=== PATIENT | female | born 1960 | race Caucasian/White ===

== ENCOUNTER 2016-05-02 11:01 | Outpatient (CLI) | payer MEDICAID | END 2016-05-02 11:02 | disposition home or self-care (01) | DX: E88.81 Metabolic syndrome and other insulin resistance (principal); E78.5 Hyperlipidemia, unspecified; I10 Essential (primary) hypertension ==

== ENCOUNTER 2016-08-03 23:00 | Emergency (ER) | payer MEDICAID ==
[2016-08-03 23:10] VITALS: BP 158/105
[2016-08-03] MEDS ORDERED: IPRATROPIUM/ALBUTEROL 3 ML NEB INH STA (23:27)
[2016-08-03] MEDS ORDERED: predniSONE 20 MG TABLET PO STA (23:27)
--- NOTE | 2016-08-03 23:29 | ED Physician Documentation ---
PD HPI URI - Stated complaint Stated Complaint: COUGH,VOMITING,SOA - Chief complaint Chief Complaint: Heent - History obtained from History obtained from: Patient - History of Present Illness Timing - onset: How many weeks ago (1) Timing duration: Weeks (1) Timing details: Gradual onset Pain level max: 6 Pain level now: 6 Associated symptoms: Nasal congestion, Rhinorrhea, Dry cough, Dyspnea (wheezing , has used inhalers before). No: Fever, Chills, Sore throat Contributing factors: Sick contact, COPD / asthma. No: Immunocompromised, Unimmunized Improves by: Rest Worsened by: Activity, Breathing Recently seen: Not recently seen Review of Systems Constitutional: denies: Fever, Chills Nose: reports: Rhinorrhea / runny nose, Congestion Respiratory: reports: Cough GI: denies: Abdominal Pain, Nausea, Vomiting, Diarrhea Skin: denies: Rash Musculoskeletal: denies: Neck pain, Back pain Neurologic: denies: Focal weakness, Numbness, Headache PD PAST MEDICAL HISTORY - Past Medical History Past Medical History: Yes Cardiovascular: Hypertension, High cholesterol Respiratory: Asthma Psych: Depression, Anxiety - Past Surgical History 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 HEENT: Tonsil/Adenoidectomy - Present Medications Home Medications: Ambulatory Orders Medication Instructions Recorded Confirmed Albuterol Sulfate [Albuterol 1 puffs INH TID 09/22/13 09/22/13 Sulfate Hfa] Budesonide/Formoterol Fumarate 1 puffs INH BID 09/22/13 09/22/13 [Symbicort 80-4.5 Mcg Inhaler] Bupropion HCl [Bupropion HCl Sr] 150 mg PO BID 09/22/13 09/22/13 Hydrochlorothiazide 25 mg PO DAILY 09/22/13 09/22/13 Lisinopril 10 mg PO DAILY 09/22/13 09/22/13 Losartan [Cozaar] 50 mg PO DAILY 09/22/13 09/22/13 Pravastatin Sodium 40 mg PO DAILY 09/22/13 09/22/13 Albuterol Sulf [Ventolin Hfa 2 puffs INH Q4HR PRN #1 inhaler 08/04/16 Inhaler] Prednisone 40 mg PO DAILY #10 tablet 08/04/16 - Allergies Allergies/Adverse Reactions: Allergies Allergy/AdvReac Type Severity Reaction Status Date / Time meperidine HCl * Allergy Nausea Verified 08/03/16 23:08 [From Demerol] - Social History Does the pt smoke?: No Smoking Status: Never smoker Does the pt drink ETOH?: No Does the pt have substance abuse?: Yes Substance Use and Type: Marijuana - Immunizations Immunizations are current?: No - POLST Patient has POLST: No PD ED PE NORMAL - Vitals Vital signs reviewed: Yes - General General: Alert and oriented X 3, No acute distress - HEENT HEENT: PERRL, Ears normal, Moist mucous membranes, Pharynx benign - Neck Neck: Supple, no meningeal sign - Cardiac Cardiac: RRR - Respiratory Respiratory: No respiratory distress, Other (diminished BS bilaterally.) - Abdomen Abdomen: Soft, Non tender - Derm Derm: Warm and dry - Extremities Extremities: No calf tenderness / cord - Neuro Neuro: Alert and oriented X 3 - Psych Psych: Normal mood, Normal affect Results - Vitals Vitals: Vital Signs - 24 hr 08/03/16 08/03/16 08/03/16 23:05 23:09 23:30 Temperature 36.9 C Heart Rate 91 88 Respiratory 18 18 Rate Blood Pressure 158/105 H O2 Saturation 94 08/04/16 08/04/16 00:00 00:25 Temperature Heart Rate 88 90 Respiratory 18 18 Rate Blood Pressure O2 Saturation Oxygen O2 Source Room air PD MEDICAL DECISION MAKING - ED course Complexity details: re-evaluated patient, considered differential, d/w patient ED course: Patient is a 55-year-old female who presents to the emergency department with what appears to be a viral upper respiratory infection causing exacerbation of her asthma. Given steroids here as well as a DuoNeb and albuterol treatments. Her breath sounds improved bilaterally. Coughing decreased. No hypoxia. No evidence of pneumonia clinically. No fevers. Will place on steroids and inhalers for home and have her follow-up with her doctor. Patient counseled regarding signs and symptoms for which I believe and urgent re-evaluation would be necessary. Patient with good understanding of and agreement to plan and is comfortable going home at this time This document was made in part using voice recognition software. While efforts are made to proofread this document, sound alike and grammatical errors may occur. Departure - Departure Disposition: 01 Home, Self Care Clinical Impression: Viral URI Condition: Good Instructions: ED URI Viral Follow-Up: Emeterio Lopez MD [Primary Care Provider] - Within 1 week Prescriptions: Albuterol Sulf [Ventolin Hfa Inhaler] 2 puffs INH Q4HR PRN #1 inhaler PRN Reason: Wheezing Prednisone 40 mg PO DAILY #10 tablet Comments: Return if you worsen. Use the inhaler every 4 hours as needed. Your blood pressure was elevated today on check in to the emergency department. This does not mean that you have hypertension, it is a common phenomenon to check into the emergency department and have elevated blood pressure. I recommend that you see your primary care physician within the week to have it rechecked when you're feeling better. Discharge Date/Time: 08/04/16 00:36
[2016-08-03] MEDS ORDERED: IPRATROPIUM/ALBUTEROL 3 ML NEB INH ONE (23:31)
[2016-08-03] MEDS ORDERED: predniSONE 20 MG TABLET ONE (23:38)
[2016-08-03] MEDS ORDERED: ALBUTEROL NEB 2.5 MG/3 ML INH STA (23:59)
[2016-08-04] MEDS ORDERED: ALBUTEROL NEB 2.5 MG/3 ML INH ONE (00:10)
[2016-08-04] MEDS ORDERED: ALBUTEROL 8 GM INHALER INH STA (00:21)
[2016-08-04] MEDS ORDERED: ALBUTEROL 18 GM INHALER INH ONE (00:23)
== END 2016-08-04 00:36 | disposition home or self-care (01) ==
LOC: ED 23:00
DX: J06.9 Acute upper respiratory infection, unspecified (principal); B97.89 Other viral agents as the cause of diseases classified elsewhere; I10 Essential (primary) hypertension; E78.00 Pure hypercholesterolemia, unspecified; J45.909 Unspecified asthma, uncomplicated
CPT/HCPCS: 94640; 94664; 99283; A9270; J7512; J7613; J7620

== ENCOUNTER 2016-10-21 14:17 | Outpatient (CLI) | payer MEDICAID ==
--- NOTE | 2016-10-21 17:41 | XRAY Report ---
THREE-VIEW LEFT KNEE: 10/21/2016 HISTORY: Knee pain. FINDINGS: Multicompartment degenerative changes have progressed. There is mediolateral and patellof emoral narrowing, subchondral sclerosis, and early osteophytic formation. A small suprapatellar joint effusion is noted. There is no definite acute fracture or focus of destruction. There are no changes to suggest osteoch ondritis desiccans. The alignment is anatomic. IMPRESSION: SUPRAPATELLAR JOINT EFFUSION. PROGRESSIVE DEGENERATIVE CHANGES. NO ACUTE FRACTURE OR M ALALIGNMENT. JOB #: [id number] EXT JOB #:[id number]
== END 2016-10-21 14:18 | disposition home or self-care (01) ==
LOC: DI.N 14:17
PROVIDERS: ATTEND Family Medicine
DX: M17.12 Unilateral primary osteoarthritis, left knee (principal); M25.462 Effusion, left knee; E88.81 Metabolic syndrome and other insulin resistance; E66.9 Obesity, unspecified
CPT/HCPCS: 36415; 80053; 80061; 83036

== ENCOUNTER 2016-10-21 14:19 | Outpatient (CLI) | payer MEDICAID ==
[2016-10-21 19:29] LABS: HEMOGLOBIN A1C 0.67 g/dL
[2016-10-21 19:38] LABS: ALBUMIN/GLOBULIN RATIO 1.6 (1.0-2.2); BILIRUBIN,TOTAL 0.3 mg/dL (0.2-1.0); BUN - BLOOD UREA NITROGEN 20 mg/dL (6-20); CALCIUM 9.3 mg/dL (8.5-10.3); CARBON DIOXIDE - CO2 30 mmol/L (21-32); CHLORIDE 101 mmol/L (101-111); CHOL/HDL RATIO 4.4 (<4.4); CHOLESTEROL 197 mg/dL; CREATININE 0.7 mg/dL (0.4-1.0); GFR - MDRD 87 (>89); GLUCOSE 105 mg/dL (70-100); HDL CHOLESTEROL 45 mg/dL; LDL/HDL RATIO 2.3 (<4.4); SODIUM 140 mmol/L (135-145); TOTAL PROTEIN 7.3 g/dL (6.7-8.2); TRIGLYCERIDES 252 mg/dL; VLDL CHOLESTEROL 50 mg/dL
== END 2016-10-21 14:20 | disposition home or self-care (01) ==
LOC: LAB.N 14:19
PROVIDERS: ATTEND Family Medicine
DX: E66.9 Obesity, unspecified (principal); E88.81 Metabolic syndrome and other insulin resistance
CPT/HCPCS: 36415; 80053; 80061; 83036

== ENCOUNTER 2016-10-22 16:51 | Outpatient (CLI) | payer MEDICAID ==
--- NOTE | 2016-10-23 09:53 | Ultrasound Report ---
EXAM: LEFT LOWER EXTREMITY VENOUS ULTRASOUND EXAM DATE: 10/22/2016 05:43 PM. CLINICAL HISTORY: Left leg pain, left thigh pain, left knee pain. COMPARISON: None. TECHNIQUE: Real-time sonographic vascular imaging was performed by the boiler tube reamer through the lower extremity utilizing both color-flow and Doppler spectral analysis. 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 FINDINGS: Common Femoral Vein (CFV): Normal. CFV-GSV Junction: Normal. Profunda Femoral Vein (PFV): Normal. Femoral Vein (FV) Prox: Normal. Femoral Vein (FV) Mid: Normal. Femoral Vein (FV) Dist: Normal. Popliteal Vein: Normal. Posterior Tibial Veins: Normal. Peroneal Veins: Normal. Contralateral Side CFV: Normal. Other: 5.4 x 1.4 x 2.0 cm Summers's cyst. IMPRESSION: No evidence for deep venous thrombosis. [facility] Referring Provider Line: [phone] SITE ID: [id number]
== END 2016-10-22 16:52 | disposition home or self-care (01) ==
LOC: DI 16:51
PROVIDERS: ATTEND Family Medicine
DX: M79.605 Pain in left leg (principal); M79.652 Pain in left thigh; M25.562 Pain in left knee

== ENCOUNTER 2017-03-21 14:50 | Outpatient (CLI) | payer MEDICAID | END 2017-03-21 14:51 | disposition home or self-care (01) | LOC: DI 14:50 | PROVIDERS: ATTEND Nurse Practitioner Gerontology | DX: Z53.9 Procedure and treatment not carried out, unspecified reason (principal) ==

== ENCOUNTER 2017-03-28 16:22 | Outpatient (CLI) | payer MEDICAID ==
--- NOTE | 2017-03-28 22:19 | MRI Report ---
EXAM: LEFT KNEE MRI WITHOUT CONTRAST EXAM DATE: 03/28/2017 05:41 PM. CLINICAL HISTORY: Pain in left knee. COMPARISON: Left knee radiography from 10/21/2016. TECHNIQUE: Multiplanar, multisequence T1-weighted and fluid-sensitive sequences of the knee without c ontrast. Other: None. FINDINGS: Bones and articular cartilage: Marginal osteophytes at the femoral condyles, tibial plateau, and bolton lla. Grade 3 chondromalacia at the posterior aspect of the lateral tibial plateau. Grade 2 chondromal acia at the lateral femoral condyle. Grade 3-4 chondromalacia at the medial femoral condyle and media l tibial plateau. Focal full-thickness articular cartilage fissure at the medial patellar facet. Grad e 2-3 chondromalacia at the medial patellar facet. Grade 2 chondromalacia at the femoral trochlea. No patellar subluxation. Medial Meniscus: Horizontal tear throughout the posterior horn. Vertically-oriented longitudinal tear within the lateral aspect of the posterior horn. The medial meniscal body is partially extruded medi ally from the medial joint compartment. Lateral Meniscus: The lateral meniscus is intact. Cruciate Ligaments: The anterior and posterior cruciate ligaments are intact. Collateral Ligaments: The medial collateral and lateral collateral ligamentous structures are intact. Tendons: The quadriceps, patellar, semimembranosus, and popliteus tendons are unremarkable. Musculature: No edema or fatty atrophy. Other: Small joint effusion. Small to moderate-sized popliteal cyst. There is a 4 mm ossified loose b zaid or focal fatty tissue at the posterolateral aspect of the medial joint compartment (coronal image 23, sagittal image 13, axial image 13). The medial and lateral retinacula are intact. The subcutane ous tissues and fat pads are unremarkable. IMPRESSION: 1. 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 2. Horizontal and vertical tears at the posterior horn medial meniscus. The medial meniscal body is p artially extruded medially from the medial joint compartment. 3. Small joint effusion and small to moderate-sized popliteal cyst. 4. A 4 mm ossified loose body or focal fatty tissue at the posterolateral aspect of the medial joint compartment. [facility] MUSCULOSKELETAL RADIOLOGY SECTION Referring Provider Line: [phone] SITE ID: [id number]
== END 2017-03-28 16:23 | disposition home or self-care (01) ==
LOC: DI 16:22
PROVIDERS: ATTEND Nurse Practitioner Gerontology
DX: M17.12 Unilateral primary osteoarthritis, left knee (principal); S83.242A Other tear of medial meniscus, current injury, left knee, initial encounter; M25.462 Effusion, left knee; M71.22 Synovial cyst of popliteal space [Baker], left knee

== ENCOUNTER 2017-05-22 13:37 | Outpatient (CLI) | payer MEDICAID ==
[2017-05-22 19:26] LABS: CALCIUM 8.7 mg/dL (8.5-10.3); CREATININE 0.6 mg/dL (0.4-1.0)
[2017-05-22 19:38] LABS: HB2 TOTAL 13.5 g/dL; HEMOGLOBIN A1C 0.52 g/dL; HEMOGLOBIN A1C % 5.7 % (4.6-6.2)
== END 2017-05-22 13:38 | disposition home or self-care (01) ==
LOC: LAB.N 13:37
PROVIDERS: ATTEND Family Medicine
DX: R73.01 Impaired fasting glucose (principal); Z87.440 Personal history of urinary (tract) infections
CPT/HCPCS: 36415; 80048; 81001; 81003; 83036; 87086

== ENCOUNTER 2017-05-22 16:46 | Outpatient (CLI) | payer MEDICAID ==
[2017-05-22 18:56] LABS: BILIRUBIN,URINE NEGATIVE (NEGATIVE); GLUCOSE, URINE (UA) NEGATIVE (NEGATIVE); KETONES,URINE (UA) NEGATIVE (NEGATIVE); LEUKOCYTE ESTERASE, URINE NEGATIVE (NEGATIVE); NITRITE,URINE NEGATIVE (NEGATIVE); OCCULT BLOOD,URINE SMALL (NEGATIVE); PH,URINE 5.5 PH (5.0-7.5); PROTEIN,URINE TRACE mg/dL (NEGATIVE); UROBILINOGEN,URINE 1 (NORMAL) E.U./dL (NORMAL)
[2017-05-22 19:03] LABS: CLARITY,URINE CLOUDY (CLEAR)
[2017-05-22 20:31] LABS: AMORPHOUS SEDIMENT,UR Marked /LPF; BACTERIA,URINE Rare /HPF (None Seen); SQUAMOUS EPITHELIAL CELL,UR FEW Squamous (<= Few)
== END 2017-05-22 16:47 | disposition home or self-care (01) ==
LOC: LAB.R 16:46
PROVIDERS: ATTEND Nurse Practitioner Gerontology
DX: Z87.440 Personal history of urinary (tract) infections (principal)
CPT/HCPCS: 81001; 81003; 87086

== ENCOUNTER 2017-07-07 09:16 | Day surgery (SDC) | payer MEDICAID ==
[2017-07-07] MEDS ORDERED: LACTATED RINGERS 1,000 ML IV ONE ×2 (09:46→11:50)
[2017-07-07] MEDS ORDERED: SCOPOLAMINE PATCH TOP ONE (10:22)
[2017-07-07] MEDS ORDERED: fentaNYL 250 MCG/5 ML VIAL IVP ONE (11:17)
[2017-07-07] MEDS ORDERED: MIDAZOLAM 2 MG/2 ML VIAL IVP ONE (11:17)
[2017-07-07] MEDS ORDERED: LIDO GARGLE 30 ML BOTTLE TOP ONE (11:22)
[2017-07-07] MEDS ORDERED: LIDO GARGLE 30 ML BOTTLE ONE (11:27)
[2017-07-07 12:42] VITALS: BP 128/75
== END 2017-07-07 09:17 | disposition home or self-care (01) ==
LOC: SDS 09:16
PROVIDERS: ATTEND Surgery
PROC: 0DB78ZX Excision of Stomach, Pylorus, Via Natural or Artificial Opening Endoscopic, Diagnostic (ICD-10-PCS; 2017-07-07)
PROC: 0DBL8ZX Excision of Transverse Colon, Via Natural or Artificial Opening Endoscopic, Diagnostic (ICD-10-PCS; principal; 2017-07-07 10:30)
PROC: 0DB38ZX Excision of Lower Esophagus, Via Natural or Artificial Opening Endoscopic, Diagnostic (ICD-10-PCS; 2017-07-07 10:30)
DX: K44.9 Diaphragmatic hernia without obstruction or gangrene (principal); K25.9 Gastric ulcer, unspecified as acute or chronic, without hemorrhage or perforation; D12.3 Benign neoplasm of transverse colon; K57.30 Diverticulosis of large intestine without perforation or abscess without bleeding; K64.8 Other hemorrhoids; K64.4 Residual hemorrhoidal skin tags; F32.9 Major depressive disorder, single episode, unspecified; I10 Essential (primary) hypertension; Z79.82 Long term (current) use of aspirin
CPT/HCPCS: 43239; 45380; A9270; J3010; J3490; J7120; 88305

== ENCOUNTER 2017-08-18 07:15 | Day surgery (SDC) | payer MEDICAID ==
[2017-08-18] MEDS ORDERED: SCOPOLAMINE PATCH TOP ONE (07:41)
[2017-08-18] MEDS ORDERED: BUPIVACAINE 0.5%-EPI 1:200000 PF 30 ML VIAL ONE (07:48)
[2017-08-18] MEDS ORDERED: LIDOCAINE JELLY 2% 5 ML TUBE TOP ONE ×2 (07:48→10:04)
[2017-08-18] MEDS ORDERED: LACTATED RINGERS 1,000 ML IV ONE ×2 (07:54→10:34)
[2017-08-18] MEDS ORDERED: ALBUTEROL 6.7 GM INHALER INH ONE (10:02)
[2017-08-18] MEDS ORDERED: KETOROLAC 30 MG/ML VIAL IVP ONE (10:02)
[2017-08-18] MEDS ORDERED: DEXAMETHASONE 4 MG/ML VIAL IVP ONE (10:02)
[2017-08-18] MEDS ORDERED: GLYCOPYRROLATE 1 MG/5 ML VIAL IVP ONE (10:02)
[2017-08-18] MEDS ORDERED: ONDANSETRON 4 MG/2 ML VIAL IVP ONE (10:02)
[2017-08-18] MEDS ORDERED: ROCURONIUM 50 MG/5 ML VIAL IVP ONE (10:02)
[2017-08-18] MEDS ORDERED: fentaNYL 250 MCG/5 ML VIAL IVP ONE (10:02)
[2017-08-18] MEDS ORDERED: MIDAZOLAM 2 MG/2 ML VIAL IVP ONE (10:02)
[2017-08-18] MEDS ORDERED: NEOSTIGMINE 1 MG/1 ML 10 ML MDV IVP ONE (10:02)
[2017-08-18] MEDS ORDERED: PROPOFOL 200 MG/20 ML VIAL IVP ONE (10:02)
[2017-08-18] MEDS ORDERED: BUPIVACAINE 0.5%-EPI 1:200000 PF 30 ML VIAL SUBQ ONE (10:04)
--- NOTE | 2017-08-18 10:34 | OPERATIVE REPORT ---
Operative Report - General Procedure Date: 08/18/17 Planned Procedure: Stapled hemorrhoidectomy (PPH) Pre-Op Diagnosis: Symptomatic, prolapsing internal hemorrhoids Procedure Performed: Stapled hemorrhoidectomy (PPH) Post Op Diagnosis: Same. - Procedure Note Primary Surgeon: Aristides Jolley MD Anesthesia Provider: Alison Luna CRNA Anesthesia Technique: General ET tube, Local (30 mL of half percent Marcaine with epinephrine) IV Fluids (mL): 1,000 Estimated Blood Loss (mL): 5 Complications: None. - Other Other Information/Narrative: OPERATIVE DESCRIPTION/REPORT: After verbal and written informed consent was obtained detailing the risks of infection, bleeding requiring transfusion with its risks, nerve injury, and , and after I met with the patient confirming the surgery and the site of the surgery, the patient was brought to the operative suite and placed supine on the operating table. Great care was taken to avoid pressure points to prevent pressure necrosis or nerve injury. Monitoring devices were applied along with TEDs and pneumatic compressive stockings (to prevent DVT). The patient received preoperative antibiotics for surgical prophylaxis. Alison Luna CRNA sedated and anethetized the patient for the entire procedure. The patient was then placed prone in the jewel-knife position, again taking care to ensure that we prevented pressure point. The patients buttocks were taped apart and the patient was prepped and draped in the usual sterile manner. A "time in" then confirmed that the paitient was identified with 3 identifiers ( name, birthdate and medical record number), the history and physical was in the chart, the signed consent confirming the procedure was in the chart, the patient was in the correct position, the aforementioned prophylactic measures were in place or given, we had the correct personnel and equipment to complete the procedure and that anesthesia, surgery and nursing were given an opportunity to express any concerns. With the agreement of everyone in the room , we proceeded with the operation. The anorectum was injected circumferentially with % marcaine. A large external hemorrhoid was excised using serial application of the Harmonic scalpel , as it would not be addressed by the PPH technique. The PPH kit was obtained and opened. The anal retractor and dilator were placed in the patients anus after thoroughly lubricating them with a water-soluble lubricant. The retractor was held in place to the patients buttocks with 2 2-0 Prolene sutures. The dilator was removed and the tapered appliance was inserted. 4 cm was clearly marked on the appliance measuring from the dentate line. The dentate line was clearly protected behind the retractor. A 2-0 Prolene was then used to sew a purse-string at 4 cm from the dentate line using the tapered appliance as a guide and retractor. The purse string was completed through over 360 degrees to ensure that there were no skipped areas. The purse-string was tested by pulling on the two ends of the suture and feeling the purse- string contract against my finger. It was noted to be complete without any missed areas. The anvil was inserted past the purse-string feeling the ``pop as it passed it. The purse-string was then tied tight around the post and the ends of the suture brought up and tied through the orange hole in the anvil. The anvil was then inserted into the stapling device and the stapler was then screwed down tight. I inserted my finger in the vagina to ensure that the vaginal mucosa was not included in the stapler and it was not. Three minutes were allowed to elapse to allow for emptying of the tissues of blood. The stapler was fired and removed from the anus. A complete ``donut was retrieved from around the post of the stapler, and this was sent in to pathology. Digital examination confirmed a circumferential stapling. Visual inspection confirmed hemostasis. A roll of gelfoam and lidocaine jelly was fashioned and inserted into the patients anus. The perianal area was again injected with the remaining % marcaine. At this point a time out was performed that confirmed that all the counts were correct, the procedure that was performed, the blood loss, the IV fluids administered, and the patients condition. Having tolerated the procedure well, the patient was subsequently taken to short stay in good and stable condition.
[2017-08-18] MEDS ORDERED: oxyCOD/ACETAMIN 5 MG/325 MG TABLET PO ONE (11:48)
[2017-08-18 12:31] VITALS: BP 132/78
== END 2017-08-18 07:16 | disposition home or self-care (01) ==
LOC: SDS 07:15
PROVIDERS: ATTEND Surgery
PROC: 06BY0ZC Excision of Hemorrhoidal Plexus, Open Approach (ICD-10-PCS; 2017-08-18)
PROC: 06BY0ZC Excision of Hemorrhoidal Plexus, Open Approach (ICD-10-PCS; principal; 2017-08-18 08:30)
DX: K64.8 Other hemorrhoids (principal); K64.4 Residual hemorrhoidal skin tags; Z79.82 Long term (current) use of aspirin; I10 Essential (primary) hypertension; E78.5 Hyperlipidemia, unspecified
CPT/HCPCS: 46947; A4649; A9270; J3010; J3490; J7120; J7613; 88304

== ENCOUNTER 2017-09-04 13:47 | Emergency (ER) | payer MEDICAID ==
[2017-09-04 13:55] VITALS: BP 162/106
--- NOTE | 2017-09-04 16:12 | ED Physician Documentation ---
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 instead of her pepsi swallowed some of it afterwards her throat was burning, she was vomiting (no blood) and wheezing she states she called poison control and was reassured non toxic but that a nurse friend looked at the bottle ingredients and said it was dangerous and to go to the ED she is feeling improved now unfortunately she does not have the bottle now - does not know the chemicals involved - nor does she have a friend or co-worker etc who could bring bottle in or even take a pic and send it to us Review of Systems Throat: reports: Sore throat Respiratory: reports: Wheezing PD PAST MEDICAL HISTORY - Past Medical History Past Medical History: Yes Cardiovascular: Hypertension, High cholesterol Respiratory: Asthma Endocrine/Autoimmune: None GI: GERD, Chronic diarrhea, Chronic constipation : None HEENT: None Psych: Depression, Anxiety Musculoskeletal: None Derm: None - Past Surgical History Past Surgical History: Yes General: Colonoscopy, EGD 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 HEENT: Tonsil/Adenoidectomy - Present Medications Home Medications: Ambulatory Orders Medication Instructions Recorded Confirmed Bupropion HCl [Bupropion HCl Sr] 150 mg PO BID 09/22/13 08/18/17 Pravastatin Sodium 40 mg PO DAILY 09/22/13 08/18/17 Sertraline [Zoloft] 25 mg PO DAILY 07/06/17 08/18/17 Losartan Potassium 25 mg PO DAILY 07/07/17 08/18/17 Loratadine [Claritin] 10 mg PO DAILY 08/13/17 08/18/17 Omeprazole [PriLOSEC] 20 mg PO DAILY 08/18/17 08/18/17 - Allergies Allergies/Adverse Reactions: Allergies Allergy/AdvReac Type Severity Reaction Status Date / Time meperidine HCl * Allergy Nausea Verified 08/18/17 07:56 [From Demerol] JUAN F Inhibitors AdvReac Respiratory Verified 09/04/17 13:55 - Social History Does the pt smoke?: No Smoking Status: Never smoker Does the pt drink ETOH?: No Does the pt have substance abuse?: Yes - Immunizations Immunizations are current?: No - POLST Patient has POLST: No PD ED PE NORMAL - Vitals Vital signs reviewed: Yes - General General: Alert and oriented X 3 - HEENT HEENT: Other (mild erythema, no necrosis or swelling, no trismus) - Cardiac Cardiac: RRR - Respiratory Respiratory: No respiratory distress, Clear bilaterally, Other (no wheeze or strodor) - Abdomen Abdomen: Soft, Non tender - Neuro Neuro: Alert and oriented X 3 Results - Vitals Vitals: Vital Signs - 24 hr 09/04/17 13:52 Temperature 36.2 C L Heart Rate 83 Respiratory 20 Rate Blood Pressure 162/106 H O2 Saturation 98 Oxygen O2 Source Room air PD MEDICAL DECISION MAKING - ED course ED course: per poison control floor prevention rn are usually cationic or ionic detergents and not caustic and would cause irritation but not burn pt does not have the bottle she states she read numbers off the bottle to poison control but I called poison control for details and poison control states they did not have info to ID the product will need to have someone find and send a pic or bring in the product while I was discussing her case with poison control, fast track nurse came and advises me she has eloped - Sepsis Event Vital Signs: Vital Signs - 24 hr 09/04/17 13:52 Temperature 36.2 C L Heart Rate 83 Respiratory 20 Rate Blood Pressure 162/106 H O2 Saturation 98 Oxygen O2 Source Room air Departure - Departure Disposition: ED Elope Clinical Impression: Accidental ingestion of potentially harmful entity Discharge Date/Time: 09/04/17 16:11
== END 2017-09-04 16:11 | disposition left against medical advice (07) ==
LOC: ED 13:47
DX: T65.891A Toxic effect of other specified substances, accidental (unintentional), initial encounter (principal); I10 Essential (primary) hypertension; E78.00 Pure hypercholesterolemia, unspecified; J45.909 Unspecified asthma, uncomplicated; Y99.0 Civilian activity done for income or pay
CPT/HCPCS: 99282

== ENCOUNTER 2018-09-07 08:00 | Outpatient (CLI) | payer MEDICAID | END 2018-09-07 23:59 | disposition home or self-care (01) | LOC: LAB.R 08:00 | PROVIDERS: ATTEND Family Medicine | DX: R30.0 Dysuria (principal) | CPT/HCPCS: 87086 ==

== ENCOUNTER 2019-03-04 10:48 | Outpatient (CLI) | payer MEDICAID ==
[2019-03-04] MEDS ORDERED: IOVERSOL 320 100 ML VIAL IVP ONE ×2 (10:56→12:10)
[2019-03-04] MEDS ORDERED: IOVERSOL 320 50 ML VIAL ONE (10:56)
[2019-03-04 11:30] LABS: ALBUMIN 4.5 g/dL (3.2-5.5); ALBUMIN/GLOBULIN RATIO 1.6 (1.0-2.2); BILIRUBIN,TOTAL 0.5 mg/dL (0.2-1.0); CALCIUM 9.3 mg/dL (8.5-10.3); CREATININE 0.7 mg/dL (0.4-1.0); TOTAL PROTEIN 7.4 g/dL (6.7-8.2)
[2019-03-04] MEDS ORDERED: IOVERSOL 320 50 ML VIAL PO ONE (12:10)
--- NOTE | 2019-03-04 13:06 | CT Report ---
Reason: CHRONIC DIARRHEA, EPIGASTRIC PAIN, MORBID OBESITY Procedure Date: 03/04/2019 Accession Number: [id number] / [id number] Procedure: CT - Abdomen/Pelvis W CPT Code: Final Report FULL RESULT: EXAM: CT ABDOMEN AND PELVIS EXAM DATE: 03/04/2019 12:09 PM. CLINICAL HISTORY: Chronic diarrhea, epigastric pain, morbid obesity. COMPARISONS: None. TECHNIQUE: Routine helical CT imaging was performed through the abdomen and pelvis. IV contrast: Optiray 320 90 mL. Enteric contrast: No. Reconstructions: Coronal and sagittal. In accordance with CT protocol optimization, one or more of the following dose reduction techniques were utilized for this exam: automated exposure control, adjustment of mA and/or KV based on patient size, or use of iterative reconstructive technique. FINDINGS: Lung Bases: Unremarkable. Liver: Slightly decreased density diffusely without lobular contour changes or mass seen. Gallbladder/Bile Ducts: Status post cholecystectomy, unremarkable. Spleen: Normal. Pancreas: Diffuse moderate to severe fatty replacement visualized. Adrenal Glands: Normal. Kidneys: Normal. No masses or hydronephrosis. Peritoneal Cavity/Bowel: No free fluid, free air or adenopathy. There is mild colon diverticulosis. No masses or acute inflammatory process. The appendix is well visualized and normal. Pelvic Organs: There are punctate foci of myometrial calcifications in the uterus, likely small calcified fibroids. The bladder and visualized pelvic organs are within normal limits. Vasculature: No aneurysms or other significant abnormality. Bones: No significant abnormality. There is moderate degenerative disk disease at L5-S1. Other: None. IMPRESSION: 1. Mild colon diverticulosis without diverticulitis. Negative for bowel wall thickening, abnormal enhancement, obstruction, abdominal mass or adenopathy. 2. Mild hepatic steatosis. Moderately severe fatty placement in the pancreas. 3. Status post cholecystectomy, unremarkable. [facility]
== END 2019-03-04 10:49 | disposition home or self-care (01) ==
LOC: DI 10:48
PROVIDERS: ATTEND Internal Medicine Gastroenterology
DX: K57.30 Diverticulosis of large intestine without perforation or abscess without bleeding (principal); K76.0 Fatty (change of) liver, not elsewhere classified; Z90.49 Acquired absence of other specified parts of digestive tract; K86.89 Other specified diseases of pancreas; E78.5 Hyperlipidemia, unspecified
CPT/HCPCS: 36415; 74177; 80053; Q9967

== ENCOUNTER 2019-06-01 08:00 | Outpatient (CLI) | payer MEDICAID | END 2019-06-01 23:59 | disposition home or self-care (01) | LOC: LAB.R 08:00 | PROVIDERS: ATTEND Family Medicine | DX: R05 Cough (principal) | CPT/HCPCS: 87275; 87276 ==

== ENCOUNTER 2022-05-13 16:21 | Outpatient (CLI) | payer MEDICAID | END 2022-05-13 23:59 | disposition critical access hospital (66) | LOC: EMS 16:21 | DX: R06.02 Shortness of breath (principal); R00.2 Palpitations; R11.2 Nausea with vomiting, unspecified; R19.7 Diarrhea, unspecified | CPT/HCPCS: A0425; A0429; A0999 ==

== ENCOUNTER 2022-05-13 16:40 | Emergency (ER) | payer MEDICAID ==
[2022-05-13 17:07] LABS: BASOPHILS % (AUTO) 0.3 %; EOSINOPHILS % (AUTO) 0.1 %; HGB - HEMOGLOBIN 15.2 g/dL (12.0-16.0); LYMPHOCYTES # (AUTO) 0.4 10^3/uL (1.5-3.5); LYMPHOCYTES % (AUTO) 3.1 %; MEAN CORPUSCULAR HEMOGLOBIN 27.6 pg (27.0-31.0); MEAN CORPUSCULAR HGB CONC 31.7 g/dL (32.0-36.0); MEAN CORPUSCULAR VOLUME 87.3 fL (81.0-99.0); MEAN PLATELET VOLUME 8.8 fL (7.9-10.8); MONOCYTES # (AUTO) 0.3 10^3/uL (0.0-1.0); MONOCYTES % (AUTO) 2.2 %; NEUTROPHILS # (AUTO) 10.6 10^3/uL (1.5-6.6); NEUTROPHILS % (AUTO) 93.9 %; PLT - PLATELET COUNT 200 10^3/uL (130-450); RED CELL DISTRIBUTION WIDTH 12.7 % (12.0-15.0); WHITE BLOOD COUNT 11.3 x10^3/uL (4.8-10.8)
[2022-05-13 17:21] LABS: ALBUMIN 4.4 g/dL (3.2-5.5); ALBUMIN/GLOBULIN RATIO 1.4 (1.0-2.2); BILIRUBIN,TOTAL 0.7 mg/dL (0.2-1.0); CALCIUM 9.4 mg/dL (8.5-10.3); CREATININE 0.7 mg/dL (0.4-1.0); POTASSIUM 3.8 mmol/L (3.5-5.0); TOTAL PROTEIN 7.5 g/dL (6.7-8.2)
--- NOTE | 2022-05-13 17:29 | XRAY Report ---
PROCEDURE: Chest 1 View X-Ray INDICATIONS: Chest pain TECHNIQUE: One view of the chest was acquired. COMPARISON: None. FINDINGS: Surgical changes and devices: None. Lungs and pleura: Minor bibasilar alveolar opacities, right greater than left. No significant pleura l effusions and no pneumothorax. No other dense consolidations. Mediastinum: Cardiomediastinal contour and central vasculature are normal. Bones and chest wall: No suspicious bony lesions. Overlying soft tissues appear unremarkable. IMPRESSION: 1. Minor bibasilar alveolar opacities, probably infectious or inflammatory. Reviewed by: Rani Chang MD on 05/13/2022 5:28 PM PST Approved by: Rani Chang MD on 05/13/2022 5:28 PM PST Station ID: [id number]
[2022-05-13] MEDS ORDERED: SODIUM CHLORIDE 0.9% 1,000 ML IV STA ×2 (17:32)
--- NOTE | 2022-05-13 17:35 | ED Physician Documentation ---
History of Present Illness - Stated complaint Stated Complaint: N/V/D AND PALPITATIONS - Chief complaint Chief Complaint: Cardiac - History obtained from History obtained from: Patient - History of Present Illness Timing: Today Pain level max: 0 Pain level now: 0 - Additonal information Additional information: 61-year-old female presents to the emergency department stating that she had vomiting today, after the episode of vomiting she felt weak and shaky. She states that she felt like she was breathing fast and her hands became tingly. She states that currently she is feeling better but still feels like her heart is beating faster than usual. No difficulty breathing. Has had diarrhea. Is currently on antibiotics for a "bad sinus infection". Review of Systems Constitutional: denies: Fever, Chills Throat: denies: Sore throat Cardiac: reports: Palpitations Respiratory: denies: Cough, Wheezing Skin: denies: Rash Musculoskeletal: denies: Neck pain, Back pain PD PAST MEDICAL HISTORY - Past Medical History Past Medical History: Yes Cardiovascular: Hypertension, High cholesterol Respiratory: Asthma Endocrine/Autoimmune: None GI: GERD, Chronic diarrhea, Chronic constipation : None HEENT: None Psych: Depression, Anxiety Musculoskeletal: None Derm: None - Past Surgical History Past Surgical History: Yes General: Cholecystectomy, Colonoscopy, EGD Ortho: Arthroscopic surgery /[employer]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 HEENT: Tonsil/Adenoidectomy - Present Medications Home Medications: Ambulatory Orders Medication Instructions Recorded Confirmed Bupropion HCl [Bupropion HCl Sr] 150 mg PO BID 09/22/13 08/18/17 Pravastatin Sodium 40 mg PO DAILY 09/22/13 08/18/17 Sertraline [Zoloft] 25 mg PO DAILY 07/06/17 08/18/17 Losartan Potassium 25 mg PO DAILY 07/07/17 08/18/17 Loratadine [Claritin] 10 mg PO DAILY 08/13/17 08/18/17 Omeprazole [PriLOSEC] 20 mg PO DAILY 08/18/17 08/18/17 Sulfamethox/Trimeth 800/160 1 tablet PO BID 05/13/22 05/13/22 [Bactrim Ds] - Allergies Allergies/Adverse Reactions: Allergies Allergy/AdvReac Type Severity Reaction Status Date / Time meperidine HCl * Allergy Nausea Verified 05/13/22 16:47 [From Demerol] JUAN F Inhibitors AdvReac Respiratory Verified 05/13/22 16:47 - Social History Does the pt smoke?: No Smoking Status: Never smoker Does the pt drink ETOH?: No Does the pt have substance abuse?: No Substance Use and Type: Marijuana - Immunizations Immunizations are current?: Yes - POLST Patient has POLST: No PD ED PE NORMAL - Vitals Vital signs reviewed: Yes - General General: Alert and oriented X 3, No acute distress - HEENT HEENT: PERRL, Moist mucous membranes - Neck Neck: Supple, no meningeal sign - Cardiac Cardiac: RRR, No murmur, Strong equal pulses - Respiratory Respiratory: No respiratory distress, Clear bilaterally - Abdomen Abdomen: Normal bowel sounds, Soft, Non tender, Non distended - Back Back: No CVA TTP, No spinal TTP - Derm Derm: Warm and dry - Extremities Extremities: No edema - Neuro Neuro: Alert and oriented X 3 - Psych Psych: Normal mood, Normal affect Results - Vitals Vitals: Vital Signs - 24 hr 05/13/22 05/13/22 05/13/22 16:42 17:02 18:28 Temperature 37.3 C Heart Rate 103 H 103 H 99 Respiratory 20 21 21 Rate Blood Pressure 158/95 H 137/78 H 134/100 H O2 Saturation 92 93 94 Oxygen O2 Source Room air - EKG (time done) 1649 EKG releavant findings:: EKG personally interpreted by author of this note. Relevant findings are: Rate: Rate (enter#) (104) Rhythm: Sinus tachycardia [place]: Normal Intervals: Normal CT Ischemia: Q waves (III, aVF, V2, 3, 4) - Labs Labs: Laboratory Tests 05/13/22 05/13/22 05/13/22 17:00 17:00 17:00 WBC 11.3 H RBC 5.50 H Hgb 15.2 Hct 48.0 H MCV 87.3 MCH 27.6 MCHC 31.7 L RDW 12.7 Plt Count 200 MPV 8.8 Neut # (Auto) 10.6 H Lymph # (Auto) 0.4 L [place] # (Auto) 0.3 Eos # (Auto) 0.0 Baso # (Auto) 0.0 Absolute Nucleated RBC 0.00 Nucleated RBC % 0.0 Sodium 139 Potassium 3.8 Chloride 100 L Carbon Dioxide 27 Anion Gap 12.0 BUN 17 Creatinine 0.7 Estimated GFR (MDRD) 85 L Glucose 168 H Calcium 9.4 Total Bilirubin 0.7 AST 26 ALT 29 Alkaline Phosphatase 66 Troponin I High Sens 4.3 Total Protein 7.5 Albumin 4.4 Globulin 3.1 Albumin/Globulin Ratio 1.4 Lipase 70 H - Rads (name of study) Chest x-ray Radiology: Final report received, See rad report PD Medical Decision Making - ED course Complexity details: reviewed results, re-evaluated patient, considered d ifferential, d/w patient, d/w family ED course: 61-year-old female currently on what appears to be Bactrim for a "sinus infection". She had nausea and vomiting today. Her CBC shows a mild leukocytosis at 11.3, no anemia. Platelets are normal. Chemistry is without significant abnormality negative high-sensitivity troponin. She was given IV fluids, heart rate decreased. Tolerating p.o. without difficulty. Patient is fully asymptomatic. Likely that the tingling in the hands earlier today was secondary to hyperventilation. Patient with likely a viral gastroenteritis. She is well-appearing, nontoxic. Afebrile. Abdomen is soft, nontender nondistended on serial exam. We will continue supportive care and have her follow-up with her doctor. Patient counseled regarding signs and symptoms for which I believe and urgent re-evaluation would be necessary. Patient with good understanding of and agreement to plan and is comfortable going home at this time This document was made in part using voice recognition software. While efforts are made to proofread this document, sound alike and grammatical errors may occur. Departure - Departure Disposition: 01 Home, Self Care Clinical Impression: Viral gastroenteritis, Palpitations Condition: Good Instructions: ED Gastroenteritis Viral Follow-Up: Aristides Foley MD [Primary Care Provider] - Within 1 week Comments: Drink plenty of fluids and rest. Return if you worsen. Your laboratory testing does not show any acute abnormalities today. You were also given IV fluids today. Discharge Date/Time: 05/13/22 18:35
--- OUTSIDE RECORDS SUMMARY | 2022-05-13 17:52 | EXTERNAL MEDICAL SUMMARY RPT | Continuity of Care Document ---
:1960 Author Organization [facility] Address [address] [place] [address] Phone Care Team Providers Name Role Phone Aristides Foley Unavailable Unavailable Allergies No information. Encounters No information. Functional Status No information. Immunizations No information. Medications date description facility 2022-03-11 00:00 Fluticasone Propionate [facility] 2022-04-29 00:00 Sulfamethoxazole-Trimethoprim [facility] 2022-04-29 00:00 Albuterol Sulfate [facility] Problems date description facility 2022-04-29 00:00 Asthma [facility] Procedures No information. Results/Labs test date author facility value unit interpret ation Result panel 1 (unknown) (no (unknown) (unknown) (no value) (units (unk nown) date) unknown) (unknown) (no (unknown) (unknown) 04/29/22 (units (unkno wn) date) unknown) (unknown) (no (unknown) (unknown) 04/29/22] (units (unkn own) date) unknown) (unknown) (no (unknown) (unknown) 01/24/22 [Rx (units (u nknown) date) Confirmed 04/29/22] unknown) (unknown) (no (unknown) (unknown) [id number] (units (unkno wn) date) unknown) (unknown) (no (unknown) (unknown) Accompanied by: (units (unknown) date) Daughter unknown) (unknown) (no (unknown) (unknown) Age/Sex: 61 / F (units (unknown) date) Date of Service: unknown) (unknown) (no (unknown) (unknown) Allergic rhinitis (units (unknown) date) unknown) (unknown) (no (unknown) (unknown) Allergies (units (unkn own) date) unknown) (unknown) (no (unknown) (unknown) [place], [place] (units ( unknown) date) [id number] unknown) (unknown) (no (unknown) (unknown) Anxiety (units (unkno wn) date) unknown) (unknown) (no (unknown) (unknown) Attending Dr: Aristides (units (unknown) date) Day Foley MD unknown) (unknown) (no (unknown) (unknown) Confirmed (units (unkn own) date) 04/29/22] unknown) (unknown) (no (unknown) (unknown) Cough (units (unkno wn) date) unknown) (unknown) (no (unknown) (unknown) : 1960 (units (unknown) date) Acct:[id number] unknown) (unknown) (no (unknown) (unknown) Depression (units (unk nown) date) unknown) (unknown) (no (unknown) (unknown) Dept at (units (unkno wn) date) . unknown) (unknown) (no (unknown) (unknown) Documented By: (units (unknown) date) Aristides Foley MD unknown) 04/29/22 1013 (unknown) (no (unknown) (unknown) Draft (units (unkno wn) date) unknown) (unknown) (no (unknown) (unknown) Essential (units (unkn own) date) hypertension unknown) (unknown) (no (unknown) (unknown) [facility] ([facility]) (unknown) (no (unknown) (unknown) Intake Note: (units (u nknown) date) unknown) (unknown) (no (unknown) (unknown) Intake performed (units (unknown) date) by: Lyn Black unknown) (unknown) (no (unknown) (unknown) Intake (units (unkno wn) date) unknown) (unknown) (no (unknown) (unknown) Intake- Clincial (units (unknown) date) Staff unknown) (unknown) (no (unknown) (unknown) Internal Medicine (units (unknown) date) Office Visit unknown) (unknown) (no (unknown) (unknown) Knee Pain (units (unkn own) date) unknown) (unknown) (no (unknown) (unknown) Last Menstural (units (unknown) date) Cycle + Details unknown) (unknown) (no (unknown) (unknown) Loc: [facility] (units (unkno wn) date) unknown) (unknown) (no (unknown) (unknown) Medical History (units (unknown) date) (Reviewed 08/14/21 unknown) @ 11:30 by Timothy Stuart PA-C) (unknown) (no (unknown) (unknown) Medications (units (un known) date) unknown) (unknown) (no (unknown) (unknown) Mixed (units (unkno wn) date) hyperlipidemia unknown) (unknown) (no (unknown) (unknown) Morbid obesity (units (unknown) date) unknown) (unknown) (no (unknown) (unknown) Other Menstrual (units (unknown) date) Period: unknown) Postmenopausal (unknown) (no (unknown) (unknown) PFSH (units (unkno wn) date) unknown) (unknown) (no (unknown) (unknown) PTSD (units (unkno wn) date) (post-traumatic unknown) stress disorder) (unknown) (no (unknown) (unknown) Patient: (units (unkno wn) date) Roxann Shell MR#: unknown) M0003 (unknown) (no (unknown) (unknown) Reason For Visit (units (unknown) date) unknown) (unknown) (no (unknown) (unknown) Review/Discuss (units (unknown) date) unknown) (unknown) (no (unknown) (unknown) S/P (units ( unknown) date) unknown) (unknown) (no (unknown) (unknown) S/P (units (unkno wn) date) cholecystectomy unknown) (unknown) (no (unknown) (unknown) S/P knee surgery (units (unknown) date) unknown) (unknown) (no (unknown) (unknown) S/P tonsillectomy (units (unknown) date) unknown) (unknown) (no (unknown) (unknown) Signed By: (units (unk nown) date) unknown) (unknown) (no (unknown) (unknown) Smoking Status: (units (unknown) date) Never smoker unknown) (unknown) (no (unknown) (unknown) Surgical History (units (unknown) date) (Reviewed 08/14/21 unknown) @ 11:30 by Timothy Stuart PA-C) (unknown) (no (unknown) (unknown) This note may have (units (unknown) date) been all or unknown) partially generated using voice recognition (unknown) (no (unknown) (unknown) Tobacco + (units (unkn own) date) Substance Use unknown) (unknown) (no (unknown) (unknown) Tobacco Status (units (unknown) date) unknown) (unknown) (no (unknown) (unknown) Visit Reasons: (units (unknown) date) knee pain follow up unknown) 02 (unknown) (no (unknown) (unknown) atorvastatin 40 mg (units (unknown) date) tablet 40 mg PO unknown) DAILY #90 tabs 02/10/22 [Rx Confirmed (unknown) (no (unknown) (unknown) fluticasone (units (un known) date) propionate 50 unknown) mcg/actuation nasal spray,suspension 1 spray (unknown) (no (unknown) (unknown) have occurred. If (units (unknown) date) there are any unknown) questions, please contact the Medical Records (unknown) (no (unknown) (unknown) intranasal BID #16 (units (unknown) date) grams 03/11/22 [Rx unknown) Confirmed 04/29/22] (unknown) (no (unknown) (unknown) lisinopril Adverse (units (unknown) date) Reaction unknown) (Intermediate, Verified 04/29/22 10:14) (unknown) (no (unknown) (unknown) loratadine 10 mg (units (unknown) date) tablet (Allerclear) unknown) 10 mg PO DAILY 10/04/20 [History Confirmed (unknown) (no (unknown) (unknown) losartan 50 mg (units (unknown) date) tablet 50 mg PO unknown) DAILY #90 tabs 02/03/22 [Rx Confirmed 04/29/22] (unknown) (no (unknown) (unknown) may occur. (units (unk nown) date) Occasional unknown) wrong-word or 'sound-alike' substitutions may have (unknown) (no (unknown) (unknown) meloxicam 15 mg (units (unknown) date) tablet 15 mg PO unknown) DAILY #20 tabs 01/24/22 [Rx Confirmed 04/29/22] (unknown) (no (unknown) (unknown) occurred due to (units (unknown) date) the inherent unknown) limitations of voice recognition software. Please (unknown) (no (unknown) (unknown) omeprazole 20 mg (units (unknown) date) tablet,delayed unknown) release 20 mg PO DAILY 10/04/20 [History (unknown) (no (unknown) (unknown) pravastatin 80 mg (units (unknown) date) tablet 80 mg PO unknown) DAILY 10/04/20 [History Confirmed 04/29/22] (unknown) (no (unknown) (unknown) read the note (units ( unknown) date) carefully and unknown) recognize, using context, where these substitutions (unknown) (no (unknown) (unknown) sertraline 100 mg (units (unknown) date) tablet 100 mg PO unknown) DAILY #90 tabs 02/03/22 [Rx Confirmed (unknown) (no (unknown) (unknown) software. Although (units (unknown) date) every effort is unknown) made to edit content, flight engineer helicopter errors (unknown) (no (unknown) (unknown) sulfamethoxazole (units (unknown) date) 800 mg-trimethoprim unknown) 160 mg tablet 1 tab PO BID #28 tabs Result panel 2 (unknown) (no (unknown) (unknown) (no value) (units (unk nown) date) unknown) (unknown) (no (unknown) (unknown) 04/29/22 (units (unkno wn) date) unknown) (unknown) (no (unknown) (unknown) 04/29/22] (units (unkn own) date) unknown) (unknown) (no (unknown) (unknown) 10:24 (units (unkno wn) date) unknown) (unknown) (no (unknown) (unknown) [id number] (units (unkno wn) date) unknown) (unknown) (no (unknown) (unknown) Accompanied by: (units (unknown) date) Daughter unknown) (unknown) (no (unknown) (unknown) Age/Sex: 61 / F (units (unknown) date) Date of Service: unknown) (unknown) (no (unknown) (unknown) Allergic rhinitis (units (unknown) date) unknown) (unknown) (no (unknown) (unknown) Allergies (units (unkn own) date) unknown) (unknown) (no (unknown) (unknown) [place], [place] (units ( unknown) date) [id number] unknown) (unknown) (no (unknown) (unknown) Anxiety (units (unkno wn) date) unknown) (unknown) (no (unknown) (unknown) Attending Dr: (units ( unknown) date) Aristides Foley MD unknown) (unknown) (no (unknown) (unknown) BMI 45.3 (units (unkno wn) date) unknown) (unknown) (no (unknown) (unknown) BP 154/87 H (units (un known) date) unknown) (unknown) (no (unknown) (unknown) Blood Pressure (units (unknown) date) Location Lt radial unknown) (unknown) (no (unknown) (unknown) Confirmed (units (unkn own) date) 04/29/22] unknown) (unknown) (no (unknown) (unknown) Cough (units (unkno wn) date) unknown) (unknown) (no (unknown) (unknown) : 1960 (units (unknown) date) Acct:[id number] unknown) (unknown) (no (unknown) (unknown) Depression (units (unk nown) date) unknown) (unknown) (no (unknown) (unknown) Dept at (units (unkno wn) date) . unknown) (unknown) (no (unknown) (unknown) Discuss Inhaler. (units (unknown) date) Asthma has become unknown) worse. (unknown) (no (unknown) (unknown) Documented By: (units (unknown) date) Aristides Foley MD unknown) 04/29/22 1013 (unknown) (no (unknown) (unknown) Draft (units (unkno wn) date) unknown) (unknown) (no (unknown) (unknown) Drop given for (units (unknown) date) build up and unknown) infection - no relief. (unknown) (no (unknown) (unknown) Essential (units (unkn own) date) hypertension unknown) (unknown) (no (unknown) (unknown) [facility] ([facility] ([facility] date[facility] unknown) (unknown) (no (unknown) (unknown) Having issues (units ( unknown) date) w/mobility. unknown) (unknown) (no (unknown) (unknown) Height 5 ft 2.5 (units (unknown) date) in unknown) (unknown) (no (unknown) (unknown) Intake Note: (units (u nknown) date) unknown) (unknown) (no (unknown) (unknown) Intake performed (units (unknown) date) by: Lyn Black unknown) (unknown) (no (unknown) (unknown) Intake (units (unkno wn) date) unknown) (unknown) (no (unknown) (unknown) Intake- Clincial (units (unknown) date) Staff unknown) (unknown) (no (unknown) (unknown) Internal Medicine (units (unknown) date) Office Visit unknown) (unknown) (no (unknown) (unknown) Knee Pain. (units (unk nown) date) Bilateral unknown) (unknown) (no (unknown) (unknown) Last Menstural (units (unknown) date) Cycle + Details unknown) (unknown) (no (unknown) (unknown) Last visit here (units (unknown) date) for ear infection. unknown) (unknown) (no (unknown) (unknown) Left knee was (units ( unknown) date) going to have unknown) surgery, but COVID hit. (unknown) (no (unknown) (unknown) Loc: [facility] (units (unkno wn) date) unknown) (unknown) (no (unknown) (unknown) Medical History (units (unknown) date) (Reviewed 08/14/21 unknown) @ 11:30 by Timothy Stuart PA-C) (unknown) (no (unknown) (unknown) Medications (units (un known) date) unknown) (unknown) (no (unknown) (unknown) Mixed (units (unkno wn) date) hyperlipidemia unknown) (unknown) (no (unknown) (unknown) Morbid obesity (units (unknown) date) unknown) (unknown) (no (unknown) (unknown) Other Menstrual (units (unknown) date) Period: unknown) Postmenopausal (unknown) (no (unknown) (unknown) Oxygen Delivery (units (unknown) date) Method room air unknown) (unknown) (no (unknown) (unknown) PFSH (units (unkno wn) date) unknown) (unknown) (no (unknown) (unknown) PTSD (units (unkno wn) date) (post-traumatic unknown) stress disorder) (unknown) (no (unknown) (unknown) Patient: (units (unkno wn) date) Roxann Shell MR#: unknown) M0003 (unknown) (no (unknown) (unknown) Position Sitting (units (unknown) date) unknown) (unknown) (no (unknown) (unknown) Pulse 67 (units (unkno wn) date) unknown) (unknown) (no (unknown) (unknown) Pulse Oximetry (units (unknown) date) (%) 95 unknown) (unknown) (no (unknown) (unknown) Pulse Source (units (u nknown) date) Monitor unknown) (unknown) (no (unknown) (unknown) Reason For Visit (units (unknown) date) unknown) (unknown) (no (unknown) (unknown) Review/Discuss (units (unknown) date) unknown) (unknown) (no (unknown) (unknown) Right knee is (units ( unknown) date) acting up. unknown) (unknown) (no (unknown) (unknown) S/P (units ( unknown) date) unknown) (unknown) (no (unknown) (unknown) S/P (units (unkno wn) date) cholecystectomy unknown) (unknown) (no (unknown) (unknown) S/P knee surgery (units (unknown) date) unknown) (unknown) (no (unknown) (unknown) S/P tonsillectomy (units (unknown) date) unknown) (unknown) (no (unknown) (unknown) Signed By: (units (unk nown) date) unknown) (unknown) (no (unknown) (unknown) Smoking Status: (units (unknown) date) Never smoker unknown) (unknown) (no (unknown) (unknown) Surgical History (units (unknown) date) (Reviewed 08/14/21 unknown) @ 11:30 by Timothy Stuart PA-C) (unknown) (no (unknown) (unknown) This note may (units ( unknown) date) have been all or unknown) partially generated using voice recognition (unknown) (no (unknown) (unknown) Tobacco + (units (unkn own) date) Substance Use unknown) (unknown) (no (unknown) (unknown) Tobacco Status (units (unknown) date) unknown) (unknown) (no (unknown) (unknown) Visit Reasons: (units (unknown) date) knee pain follow unknown) up 02 (unknown) (no (unknown) (unknown) Vitals (units (unkno wn) date) unknown) (unknown) (no (unknown) (unknown) Weight 252 lb (units ( unknown) date) unknown) (unknown) (no (unknown) (unknown) Will request (units (u nknown) date) any/all notes from unknown) [facility]. (unknown) (no (unknown) (unknown) atorvastatin 40 (units (unknown) date) mg tablet 40 mg PO unknown) DAILY #90 tabs 02/10/22 [Rx Confirmed (unknown) (no (unknown) (unknown) fluticasone (units (un known) date) propionate 50 unknown) mcg/actuation nasal spray,suspension 1 spray (unknown) (no (unknown) (unknown) have occurred. If (units (unknown) date) there are any unknown) questions, please contact the Medical Records (unknown) (no (unknown) (unknown) intranasal BID (units (unknown) date) #16 grams 03/11/22 unknown) [Rx Confirmed 04/29/22] (unknown) (no (unknown) (unknown) lisinopril (units (unk nown) date) Adverse Reaction unknown) (Intermediate, Verified 04/29/22 10:14) (unknown) (no (unknown) (unknown) loratadine 10 mg (units (unknown) date) tablet unknown) (Allerclear) 10 mg PO DAILY 10/04/20 [History Confirmed (unknown) (no (unknown) (unknown) losartan 50 mg (units (unknown) date) tablet 50 mg PO unknown) DAILY #90 tabs 02/03/22 [Rx Confirmed 04/29/22] (unknown) (no (unknown) (unknown) may occur. (units (unk nown) date) Occasional unknown) wrong-word or 'sound-alike' substitutions may have (unknown) (no (unknown) (unknown) occurred due to (units (unknown) date) the inherent unknown) limitations of voice recognition software. Please (unknown) (no (unknown) (unknown) omeprazole 20 mg (units (unknown) date) tablet,delayed unknown) release 20 mg PO DAILY 10/04/20 [History (unknown) (no (unknown) (unknown) pravastatin 80 mg (units (unknown) date) tablet 80 mg PO unknown) DAILY 10/04/20 [History Confirmed 04/29/22] (unknown) (no (unknown) (unknown) read the note (units ( unknown) date) carefully and unknown) recognize, using context, where these substitutions (unknown) (no (unknown) (unknown) sertraline 100 mg (units (unknown) date) tablet 100 mg PO unknown) DAILY #90 tabs 02/03/22 [Rx Confirmed (unknown) (no (unknown) (unknown) software. (units (unkn own) date) Although every unknown) effort is made to edit content, flight engineer helicopter errors Result panel 3 (unknown) (no (unknown) (unknown) (no value) (units (unk nown) date) unknown) (unknown) (no (unknown) (unknown) 04/29/22 (units (unkno wn) date) unknown) (unknown) (no (unknown) (unknown) 04/29/22] (units (unkn own) date) unknown) (unknown) (no (unknown) (unknown) 10:24 (units (unkno wn) date) unknown) (unknown) (no (unknown) (unknown) [address] (units (unkno wn) date) unknown) (unknown) (no (unknown) (unknown) Accompanied by: (units (unknown) date) Daughter unknown) (unknown) (no (unknown) (unknown) Age/Sex: 61 / F (units (unknown) date) Date of Service: unknown) (unknown) (no (unknown) (unknown) Allergic rhinitis (units (unknown) date) unknown) (unknown) (no (unknown) (unknown) Allergies (units (unkn own) date) unknown) (unknown) (no (unknown) (unknown) [place], [place] (units ( unknown) date) [address] unknown) (unknown) (no (unknown) (unknown) Anxiety (units (unkno wn) date) unknown) (unknown) (no (unknown) (unknown) Attending Dr: (units ( unknown) date) Aristides Foley MD unknown) (unknown) (no (unknown) (unknown) BMI 45.3 (units (unkno wn) date) unknown) (unknown) (no (unknown) (unknown) BP 154/87 H (units (un known) date) unknown) (unknown) (no (unknown) (unknown) Blood Pressure (units (unknown) date) Location Lt radial unknown) (unknown) (no (unknown) (unknown) Confirmed (units (unkn own) date) 04/29/22] unknown) (unknown) (no (unknown) (unknown) Cough (units (unkno wn) date) unknown) (unknown) (no (unknown) (unknown) : 1960 (units (unknown) date) Acct:[id number] unknown) (unknown) (no (unknown) (unknown) Depression (units (unk nown) date) unknown) (unknown) (no (unknown) (unknown) Dept at (units (unkno wn) date) . unknown) (unknown) (no (unknown) (unknown) Discuss Inhaler. (units (unknown) date) Asthma has become unknown) worse. (unknown) (no (unknown) (unknown) Documented By: (units (unknown) date) Aristides Foley MD unknown) 04/29/22 1013 (unknown) (no (unknown) (unknown) Draft (units (unkno wn) date) unknown) (unknown) (no (unknown) (unknown) Drop given for (units (unknown) date) build up and unknown) infection - no relief. (unknown) (no (unknown) (unknown) Essential (units (unkn own) date) hypertension unknown) (unknown) (no (unknown) (unknown) [facility] (units (unknown) date[facility] unknown) (unknown) (no (unknown) (unknown) Having issues (units ( unknown) date) w/mobility. unknown) (unknown) (no (unknown) (unknown) Height 5 ft 2.5 (units (unknown) date) in unknown) (unknown) (no (unknown) (unknown) Intake Note: (units (u nknown) date) unknown) (unknown) (no (unknown) (unknown) Intake performed (units (unknown) date) by: Lyn Blakc unknown) (unknown) (no (unknown) (unknown) Intake (units (unkno wn) date) unknown) (unknown) (no (unknown) (unknown) Intake- Clincial (units (unknown) date) Staff unknown) (unknown) (no (unknown) (unknown) Internal Medicine (units (unknown) date) Office Visit unknown) (unknown) (no (unknown) (unknown) Knee Pain. (units (unk nown) date) Bilateral unknown) (unknown) (no (unknown) (unknown) Last Menstural (units (unknown) date) Cycle + Details unknown) (unknown) (no (unknown) (unknown) Last visit here (units (unknown) date) for ear infection. unknown) (unknown) (no (unknown) (unknown) Left knee was (units ( unknown) date) going to have unknown) surgery, but COVID hit. (unknown) (no (unknown) (unknown) Loc: [facility] (units (unkno wn) date) unknown) (unknown) (no (unknown) (unknown) Medical History (units (unknown) date) (Reviewed 08/14/21 unknown) @ 11:30 by Timothy Stuart PA-C) (unknown) (no (unknown) (unknown) Medications (units (un known) date) unknown) (unknown) (no (unknown) (unknown) Mixed (units (unkno wn) date) hyperlipidemia unknown) (unknown) (no (unknown) (unknown) Morbid obesity (units (unknown) date) unknown) (unknown) (no (unknown) (unknown) Other Menstrual (units (unknown) date) Period: unknown) Postmenopausal (unknown) (no (unknown) (unknown) Oxygen Delivery (units (unknown) date) Method room air unknown) (unknown) (no (unknown) (unknown) PFSH (units (unkno wn) date) unknown) (unknown) (no (unknown) (unknown) PTSD (units (unkno wn) date) (post-traumatic unknown) stress disorder) (unknown) (no (unknown) (unknown) Patient: (units (unkno wn) date) Roxann Shell MR#: unknown) M0003 (unknown) (no (unknown) (unknown) Position Sitting (units (unknown) date) unknown) (unknown) (no (unknown) (unknown) Pulse 67 (units (unkno wn) date) unknown) (unknown) (no (unknown) (unknown) Pulse Oximetry (units (unknown) date) (%) 95 unknown) (unknown) (no (unknown) (unknown) Pulse Source (units (u nknown) date) Monitor unknown) (unknown) (no (unknown) (unknown) Reason For Visit (units (unknown) date) unknown) (unknown) (no (unknown) (unknown) Review/Discuss (units (unknown) date) unknown) (unknown) (no (unknown) (unknown) Right knee is (units ( unknown) date) acting up. unknown) (unknown) (no (unknown) (unknown) S/P (units ( unknown) date) unknown) (unknown) (no (unknown) (unknown) S/P (units (unkno wn) date) cholecystectomy unknown) (unknown) (no (unknown) (unknown) S/P knee surgery (units (unknown) date) unknown) (unknown) (no (unknown) (unknown) S/P tonsillectomy (units (unknown) date) unknown) (unknown) (no (unknown) (unknown) Signed By: (units (unk nown) date) unknown) (unknown) (no (unknown) (unknown) Smoking Status: (units (unknown) date) Never smoker unknown) (unknown) (no (unknown) (unknown) Surgical History (units (unknown) date) (Reviewed 08/14/21 unknown) @ 11:30 by Timothy Stuart PA-C) (unknown) (no (unknown) (unknown) This note may (units ( unknown) date) have been all or unknown) partially generated using voice recognition (unknown) (no (unknown) (unknown) Tobacco + (units (unkn own) date) Substance Use unknown) (unknown) (no (unknown) (unknown) Tobacco Status (units (unknown) date) unknown) (unknown) (no (unknown) (unknown) Visit Reasons: (units (unknown) date) knee pain follow unknown) up 02 (unknown) (no (unknown) (unknown) Vitals (units (unkno wn) date) unknown) (unknown) (no (unknown) (unknown) Weight 252 lb (units ( unknown) date) unknown) (unknown) (no (unknown) (unknown) Will request (units (u nknown) date) any/all notes from unknown) Gustavo. -- Not seen at [facility] (unknown) (no (unknown) (unknown) atorvastatin 40 (units (unknown) date) mg tablet 40 mg PO unknown) DAILY #90 tabs 02/10/22 [Rx Confirmed (unknown) (no (unknown) (unknown) fluticasone (units (un known) date) propionate 50 unknown) mcg/actuation nasal spray,suspension 1 spray (unknown) (no (unknown) (unknown) have occurred. If (units (unknown) date) there are any unknown) questions, please contact the Medical Records (unknown) (no (unknown) (unknown) intranasal BID (units (unknown) date) #16 grams 03/11/22 unknown) [Rx Confirmed 04/29/22] (unknown) (no (unknown) (unknown) lisinopril (units (unk nown) date) Adverse Reaction unknown) (Intermediate, Verified 04/29/22 10:14) (unknown) (no (unknown) (unknown) loratadine 10 mg (units (unknown) date) tablet unknown) (Allerclear) 10 mg PO DAILY 10/04/20 [History Confirmed (unknown) (no (unknown) (unknown) losartan 50 mg (units (unknown) date) tablet 50 mg PO unknown) DAILY #90 tabs 02/03/22 [Rx Confirmed 04/29/22] (unknown) (no (unknown) (unknown) may occur. (units (unk nown) date) Occasional unknown) wrong-word or 'sound-alike' substitutions may have (unknown) (no (unknown) (unknown) occurred due to (units (unknown) date) the inherent unknown) limitations of voice recognition software. Please (unknown) (no (unknown) (unknown) omeprazole 20 mg (units (unknown) date) tablet,delayed unknown) release 20 mg PO DAILY 10/04/20 [History (unknown) (no (unknown) (unknown) pravastatin 80 mg (units (unknown) date) tablet 80 mg PO unknown) DAILY 10/04/20 [History Confirmed 04/29/22] (unknown) (no (unknown) (unknown) read the note (units ( unknown) date) carefully and unknown) recognize, using context, where these substitutions (unknown) (no (unknown) (unknown) sertraline 100 mg (units (unknown) date) tablet 100 mg PO unknown) DAILY #90 tabs 02/03/22 [Rx Confirmed (unknown) (no (unknown) (unknown) software. (units (unkn own) date) Although every unknown) effort is made to edit content, flight engineer helicopter errors Result panel 4 (unknown) (no (unknown) (unknown) (no value) (units (unk nown) date) unknown) (unknown) (no (unknown) (unknown) (1) Essential (units ( unknown) date) hypertension: unknown) (unknown) (no (unknown) (unknown) (2) Mixed (units (unkn own) date) hyperlipidemia: unknown) (unknown) (no (unknown) (unknown) (3) Asthma: (units (un known) date) unknown) (unknown) (no (unknown) (unknown) (4) Morbid (units (unk nown) date) obesity: unknown) (unknown) (no (unknown) (unknown) (5) Sinusitis: (units (unknown) date) unknown) (unknown) (no (unknown) (unknown) 04/29/22 1048 (units ( unknown) date) unknown) (unknown) (no (unknown) (unknown) 04/29/22 [Rx (units (u nknown) date) Confirmed 04/29/22] unknown) (unknown) (no (unknown) (unknown) 04/29/22 (units (unkno wn) date) unknown) (unknown) (no (unknown) (unknown) 04/29/22] (units (unkn own) date) unknown) (unknown) (no (unknown) (unknown) 10:24 (units (unkno wn) date) unknown) (unknown) (no (unknown) (unknown) [id number] (units (unkno wn) date) unknown) (unknown) (no (unknown) (unknown) Accompanied by: (units (unknown) date) Daughter unknown) (unknown) (no (unknown) (unknown) Age/Sex: 61 / F (units (unknown) date) Date of Service: unknown) (unknown) (no (unknown) (unknown) Allergic rhinitis (units (unknown) date) unknown) (unknown) (no (unknown) (unknown) Allergies (units (unkn own) date) unknown) (unknown) (no (unknown) (unknown) Also been quite a (units (unknown) date) long time since she unknown) had any lab work done will get that (unknown) (no (unknown) (unknown) Also has very (units ( unknown) date) itchy scalp and unknown) some issues behind her ears she would like to see (unknown) (no (unknown) (unknown) Also having (units (un known) date) bilateral knee unknown) pain. Had serious pain in the left knee previously (unknown) (no (unknown) (unknown) [place], [place] (units ( unknown) date) [id number] unknown) (unknown) (no (unknown) (unknown) Anxiety (units (unkno wn) date) unknown) (unknown) (no (unknown) (unknown) Assessment + Plan (units (unknown) date) unknown) (unknown) (no (unknown) (unknown) Asthma severity: (units (unknown) date) mild Asthma unknown) persistence: intermittent Asthma (unknown) (no (unknown) (unknown) Asthma (units (unkno wn) date) unknown) (unknown) (no (unknown) (unknown) Attending Dr: Aristides (units (unknown) date) Day Foley MD unknown) (unknown) (no (unknown) (unknown) BMI 45.3 (units (unkno wn) date) unknown) (unknown) (no (unknown) (unknown) BP 154/87 H (units (un known) date) unknown) (unknown) (no (unknown) (unknown) Blood Pressure (units (unknown) date) Location Lt radial unknown) (unknown) (no (unknown) (unknown) Blood pressure not (units (unknown) date) perfect here today unknown) but will recheck upon her return when I (unknown) (no (unknown) (unknown) Blood pressure not (units (unknown) date) super stellar here unknown) today (unknown) (no (unknown) (unknown) Chief Complaint: (units (unknown) date) Follow-up breathing unknown) and knees (unknown) (no (unknown) (unknown) Code(s): J32.9 - (units (unknown) date) Chronic sinusitis, unknown) unspecified (unknown) (no (unknown) (unknown) Comprehensive (units ( unknown) date) Metabolic Panel 1 unknown) Month E78.2 - Mixed hyperlipidemia, I10 (unknown) (no (unknown) (unknown) Confirmed (units (unkn own) date) 04/29/22] unknown) (unknown) (no (unknown) (unknown) Cough (units (unkno wn) date) unknown) (unknown) (no (unknown) (unknown) : 1960 (units (unknown) date) Acct:[id number] unknown) (unknown) (no (unknown) (unknown) Definitely want to (units (unknown) date) get the PFTs done unknown) now she is agreeable to that she says so (unknown) (no (unknown) (unknown) Depression (units (unk nown) date) unknown) (unknown) (no (unknown) (unknown) Dept at (units (unkno wn) date) . unknown) (unknown) (no (unknown) (unknown) Discuss Inhaler. (units (unknown) date) Asthma has become unknown) worse. (unknown) (no (unknown) (unknown) Documented By: (units (unknown) date) Aristides Foley MD unknown) 04/29/22 1013 (unknown) (no (unknown) (unknown) Drop given for (units (unknown) date) build up and unknown) infection - no relief. (unknown) (no (unknown) (unknown) Essential (units (unkn own) date) (primary) unknown) hypertension (unknown) (no (unknown) (unknown) Essential (units (unkn own) date) hypertension unknown) (unknown) (no (unknown) (unknown) [facility]) (unknown) (no (unknown) (unknown) Having issues (units ( unknown) date) w/mobility. unknown) (unknown) (no (unknown) (unknown) Height 5 ft 2.5 in (units (unknown) date) unknown) (unknown) (no (unknown) (unknown) I put her back on (units (unknown) date) antibiotics for 4 unknown) weeks continuously this time. If that fails (unknown) (no (unknown) (unknown) Intake Note: (units (u nknown) date) unknown) (unknown) (no (unknown) (unknown) Intake performed (units (unknown) date) by: Lyn Black unknown) (unknown) (no (unknown) (unknown) Intake (units (unkno wn) date) unknown) (unknown) (no (unknown) (unknown) Intake- Clincial (units (unknown) date) Staff unknown) (unknown) (no (unknown) (unknown) Internal Medicine (units (unknown) date) Office Visit unknown) (unknown) (no (unknown) (unknown) Knee Pain. (units (unk nown) date) Bilateral unknown) (unknown) (no (unknown) (unknown) Last Menstural (units (unknown) date) Cycle + Details unknown) (unknown) (no (unknown) (unknown) Last visit here (units (unknown) date) for ear infection. unknown) (unknown) (no (unknown) (unknown) Lastly she would (units (unknown) date) like a referral to unknown) Dermatology for itchy scalp and I think that (unknown) (no (unknown) (unknown) Left knee was (units ( unknown) date) going to have unknown) surgery, but COVID hit. (unknown) (no (unknown) (unknown) Lipid Panel 1 (units ( unknown) date) Month E78.2 - Mixed unknown) hyperlipidemia, I10 - Essential (primary) (unknown) (no (unknown) (unknown) Loc: [facility] (units (unkno wn) date) unknown) (unknown) (no (unknown) (unknown) Medical History (units (unknown) date) (Updated 04/29/22 @ unknown) 10:46 by Aristides Foley MD) (unknown) (no (unknown) (unknown) Medications (units (un known) date) unknown) (unknown) (no (unknown) (unknown) Medications: (units (u nknown) date) unknown) (unknown) (no (unknown) (unknown) Mixed (units (unkno wn) date) hyperlipidemia unknown) (unknown) (no (unknown) (unknown) Morbid obesity (units (unknown) date) unknown) (unknown) (no (unknown) (unknown) New (units (unkno wn) date) unknown) (unknown) (no (unknown) (unknown) Note (units (unkno wn) date) unknown) (unknown) (no (unknown) (unknown) Note: (units (unkno wn) date) unknown) (unknown) (no (unknown) (unknown) Notes (units (unkno wn) date) unknown) (unknown) (no (unknown) (unknown) Orders (units (unkno wn) date) unknown) (unknown) (no (unknown) (unknown) Orders: (units (unkno wn) date) unknown) (unknown) (no (unknown) (unknown) Other Menstrual (units (unknown) date) Period: unknown) Postmenopausal (unknown) (no (unknown) (unknown) Oxygen Delivery (units (unknown) date) Method room air unknown) (unknown) (no (unknown) (unknown) PFSH (units (unkno wn) date) unknown) (unknown) (no (unknown) (unknown) PTSD (units (unkno wn) date) (post-traumatic unknown) stress disorder) (unknown) (no (unknown) (unknown) Patient is here (units (unknown) date) follow-up. I last unknown) saw her in January. Put her on antibiotic (unknown) (no (unknown) (unknown) Patient: (units (unkno wn) date) Roxann Shell MR#: unknown) [id number] (unknown) (no (unknown) (unknown) Plan (units (unkno wn) date) unknown) (unknown) (no (unknown) (unknown) Position Sitting (units (unknown) date) unknown) (unknown) (no (unknown) (unknown) Pulse 67 (units (unkno wn) date) unknown) (unknown) (no (unknown) (unknown) Pulse Oximetry (%) (units (unknown) date) 95 unknown) (unknown) (no (unknown) (unknown) Pulse Source (units (u nknown) date) Monitor unknown) (unknown) (no (unknown) (unknown) Qualifiers: (units (un known) date) unknown) (unknown) (no (unknown) (unknown) Reason For Visit (units (unknown) date) unknown) (unknown) (no (unknown) (unknown) Refilled (units (unkno wn) date) unknown) (unknown) (no (unknown) (unknown) Review/Discuss (units (unknown) date) unknown) (unknown) (no (unknown) (unknown) Right knee is (units ( unknown) date) acting up. unknown) (unknown) (no (unknown) (unknown) S/P (units ( unknown) date) unknown) (unknown) (no (unknown) (unknown) S/P (units (unkno wn) date) cholecystectomy unknown) (unknown) (no (unknown) (unknown) S/P knee surgery (units (unknown) date) unknown) (unknown) (no (unknown) (unknown) S/P tonsillectomy (units (unknown) date) unknown) (unknown) (no (unknown) (unknown) She needs referral (units (unknown) date) back to Ortho for unknown) her knees obviously that is the treatment (unknown) (no (unknown) (unknown) Signed By: (units (unk nown) date) <Electronically unknown) signed by Aristides Foley MD> (unknown) (no (unknown) (unknown) Signed (units (unkno wn) date) unknown) (unknown) (no (unknown) (unknown) Sinusitis (units (unkn own) date) location: unknown) unspecified location Chronicity: chronic Qualified (unknown) (no (unknown) (unknown) Smoking Status: (units (unknown) date) Never smoker unknown) (unknown) (no (unknown) (unknown) Status: Chronic (units (unknown) date) unknown) (unknown) (no (unknown) (unknown) Surgical History (units (unknown) date) (Reviewed 08/14/21 unknown) @ 11:30 by Timothy Stuart PA-C) (unknown) (no (unknown) (unknown) This note may have (units (unknown) date) been all or unknown) partially generated using voice recognition (unknown) (no (unknown) (unknown) Tobacco + (units (unkn own) date) Substance Use unknown) (unknown) (no (unknown) (unknown) Tobacco Status (units (unknown) date) unknown) (unknown) (no (unknown) (unknown) Visit Reasons: (units (unknown) date) knee pain follow up unknown) 02 (unknown) (no (unknown) (unknown) Vitals (units (unkno wn) date) unknown) (unknown) (no (unknown) (unknown) Weight 114.305 kg (units (unknown) date) unknown) (unknown) (no (unknown) (unknown) Will request (units (u nknown) date) any/all notes from unknown) [facility]. -- Not seen at [facility] (unknown) (no (unknown) (unknown) a night guard (units (unknown) date) for nothing with unknown) the sort a home remedies that she is tried is (unknown) (no (unknown) (unknown) albuterol sulfate (units (unknown) date) 90 mcg/actuation 2 unknown) puffs inhalation Q4-6H PRN 8.5 grams 1RF (unknown) (no (unknown) (unknown) albuterol sulfate (units (unknown) date) 90 mcg/actuation unknown) aerosol inhaler 2 puff inhalation Q4-6H PRN (unknown) (no (unknown) (unknown) and other issues (units (unknown) date) apparently. Now the unknown) right knees acting up very much like the (unknown) (no (unknown) (unknown) appreciate the (units (unknown) date) expertise from unknown) Dermatology in that sense as well (unknown) (no (unknown) (unknown) asthma, (units (unkno wn) date) uncomplicated unknown) (unknown) (no (unknown) (unknown) atorvastatin 40 mg (units (unknown) date) tablet 40 mg PO unknown) DAILY #90 tabs 02/10/22 [Rx Confirmed (unknown) (no (unknown) (unknown) by Ortho over at (units (unknown) date) [facility] unknown) [facility]. However that got canceled due to COVID (unknown) (no (unknown) (unknown) complication type: (units (unknown) date) uncomplicated unknown) Qualified Code(s): J45.20 - Mild intermittent (unknown) (no (unknown) (unknown) fluticasone (units (un known) date) propionate 50 unknown) mcg/actuation nasal spray,suspension 1 spray (unknown) (no (unknown) (unknown) follow-up on (units (u nknown) date) lipids basic unknown) chemistries etcetera (unknown) (no (unknown) (unknown) happened (units (unkno wn) date) unknown) (unknown) (no (unknown) (unknown) have occurred. If (units (unknown) date) there are any unknown) questions, please contact the Medical Records (unknown) (no (unknown) (unknown) hypertension (units (u nknown) date) unknown) (unknown) (no (unknown) (unknown) intranasal BID #16 (units (unknown) date) grams 03/11/22 [Rx unknown) Confirmed 04/29/22] (unknown) (no (unknown) (unknown) is had symptoms (units (unknown) date) ever sense. Asthma unknown) is also been somewhat triggered and she is (unknown) (no (unknown) (unknown) left the left never (units (unknown) date) got really got any unknown) better either so she is quite immobilized (unknown) (no (unknown) (unknown) lisinopril Adverse (units (unknown) date) Reaction unknown) (Intermediate, Verified 04/29/22 10:14) (unknown) (no (unknown) (unknown) looking for an (units (unknown) date) albuterol inhaler. unknown) This is somewhere to her presentation last (unknown) (no (unknown) (unknown) loratadine 10 mg (units (unknown) date) tablet (Allerclear) unknown) 10 mg PO DAILY 10/04/20 [History Confirmed (unknown) (no (unknown) (unknown) losartan 50 mg (units (unknown) date) tablet 50 mg PO unknown) DAILY #90 tabs 02/03/22 [Rx Confirmed 04/29/22] (unknown) (no (unknown) (unknown) made any (units (unkno wn) date) difference with unknown) that (unknown) (no (unknown) (unknown) makes sense as (units (unknown) date) well that is a unknown) difficult region of the body to treat and I do (unknown) (no (unknown) (unknown) may occur. (units (unk nown) date) Occasional unknown) wrong-word or 'sound-alike' substitutions may have (unknown) (no (unknown) (unknown) much better for the (units (unknown) date) 2 weeks took the unknown) antibiotics within slowly came back and she (unknown) (no (unknown) (unknown) occurred due to (units (unknown) date) the inherent unknown) limitations of voice recognition software. Please (unknown) (no (unknown) (unknown) omeprazole 20 mg (units (unknown) date) tablet,delayed unknown) release 20 mg PO DAILY 10/04/20 [History (unknown) (no (unknown) (unknown) performed as well (units (unknown) date) and see her back to unknown) review those results in person as well (unknown) (no (unknown) (unknown) plan for that (units ( unknown) date) unknown) (unknown) (no (unknown) (unknown) pravastatin 80 mg (units (unknown) date) tablet 80 mg PO unknown) DAILY 10/04/20 [History Confirmed 04/29/22] (unknown) (no (unknown) (unknown) read the note (units ( unknown) date) carefully and unknown) recognize, using context, where these substitutions (unknown) (no (unknown) (unknown) review all of her (units (unknown) date) test results unknown) (unknown) (no (unknown) (unknown) sertraline 100 mg (units (unknown) date) tablet 100 mg PO unknown) DAILY #90 tabs 02/03/22 [Rx Confirmed (unknown) (no (unknown) (unknown) shortness of (units (u nknown) date) breath or wheezing unknown) #8.5 grams 04/29/22 [Rx Confirmed 04/29/22] (unknown) (no (unknown) (unknown) shortness of (units (u nknown) date) breath or wheezing unknown) (unknown) (no (unknown) (unknown) sinuses maybe (units ( unknown) date) sufficient to help unknown) her with her asthma (unknown) (no (unknown) (unknown) software. 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 She says she was (unknown) (no (unknown) (unknown) to resolve things (units (unknown) date) and or comes right unknown) back then she will need to see ENT (unknown) (no (unknown) (unknown) up to the point (units (unknown) date) where she was going unknown) to have surgery on the knee she was seeing (unknown) (no (unknown) (unknown) will get that (units ( unknown) date) process started unknown) wrote a prescription for albuterol see if she (unknown) (no (unknown) (unknown) would benefit from (units (unknown) date) something more unknown) aggressive perhaps even just treating her Social History date description facility 2022-04-29 [facility] date measurement value units 2022-04-29 00:00 BMI 45.3 kg/m2 2022-04-29 00:00 BP_diastolic 87 mmHg 2022-04-29 00:00 BP_systolic 154 mmHg 2022-04-29 00:00 heart_rate 67 /min 2022-04-29 00:00 height_metric 158.75 cm 2022-04-29 00:00 height_standard 62.5 in 2022-04-29 00:00 o2_saturation 95 % 2022-04-29 00:00 weight_metric 114.3 kg 2022-04-29 00:00 weight_standard 251.99 lb
[2022-05-13 18:29] VITALS: BP 134/100
== END 2022-05-13 18:35 | disposition home or self-care (01) ==
LOC: EDUNIT# → ED 16:40
DX: A08.4 Viral intestinal infection, unspecified (principal); R00.2 Palpitations; I10 Essential (primary) hypertension
CPT/HCPCS: 36415; 80053; 83690; 84484; 85025; 93005; 99283; 99284

== ENCOUNTER 2023-04-17 12:43 | Outpatient (CLI) | payer MEDICAID ==
--- NOTE | 2023-04-17 13:20 | Sleep Patient Instructions ---
Sleep Center Visit Summary - Patient Visit Information Reason for Visit: Initial consult for evaluation of sleep disordered breathing and other sleep issues. - Patient Instructions Instructions Attached: Sleep Study, Sleep Study Home Monitor Additional Instructions: You will be completing a sleep study, either an in-lab polysomnography (PSG) or home sleep study (HST). You will follow-up in the sleep care office after the sleep study is completed to hear the results and talk about therapy, if needed. You will be called by our office staff to schedule this appointment, but you may contact us with any questions. - Clinic Information Contact: [facility] [address] [place] [id number] [email or web address] T: [phone]
--- NOTE | 2023-04-17 13:26 | SLEEP CARE CONSULTATION ---
Information from patient questionnaire entered by Linette Jasso. I have reviewed and concur with the information entered by Linette Jasso. This document represents the service I personally performed and the decisions made by me, Bina Manzo ARNP. History of Present Illness Service Date and Time: 04/17/2023 1243 Reason for Visit: New patient Chief Complaint: reports: Unrefreshed sleep, Snoring, Excessive daytime sleepiness, Fatigue, Frequent awakenings at night Date of Onset: 5YRS Usual bedtime: 11PM-2AM Time it takes to fall asleep: 1-2 hours Snores at night: Yes Observed to quit breathing while asleep: No Sleeps alone due to snoring: No Number of times waking at night: 3-5 Reasons for waking at night: reports: Snoring, Bathroom. denies: Choking, Gasping for air Toss, Turn, or Twitch while sleeping: Yes Recalls having dreams: Yes Usually gets out of bed at: 10AM-1PM Feels refreshed in the morning: No Morning headache: No Sleepy or fatigued during the day: Yes Ever fallen asleep while driving: No Takes day naps: Yes (daily, for 1-2 hours) Dreams during day naps: No Prior sleep studies: No Additional HPI information: I had the pleasure of seeing TERENCE GRULLON today regarding the possibility of her having a sleep disorder. She was last seen in our office in 2008 but it does not look like she had the sleep study completed at that time. Her current complaints are snoring, fatigue, excessive daytime sleepiness and unrefreshed sleep. She says her daughter told her that she has heard her mother making gurgling/choking sounds in her sleep. She has to sleep with her head in certain position or she feels like she cannot breath in or "enough oxygen." She says it takes her 1-2 hours to fall asleep normally now. She will take Benadryl, Excedrin PM and sometimes melatonin to help her fall asleep. She will wake up multiple times to use the bathroom but can lay back down and go to sleep again easily. She says last time she did not complete the sleep study but she promised her doctor that she with this time. - Parasomnia Symptoms Ever been unable to move upon waking from sleep: No Walks in sleep: No Talks in sleep: No Ever acted out dreams in sleep: No Ever felt weak in the knees when startled or emotional: Yes (especially when scared) Bothered by creepy, crawly, restless sensations in legs: No Problems with memory or concentration: Yes (more memory than concentration, but both) Subjective Initial Charlotte Sleepiness Scale score: 13 (04/17/23) Past Medical History Past Medical History: reports: Hypertension, Claustrophobia, Arthritis, Anxiety, Depression, GERD, Other (Chronic sinus issue which affects ears) Social History 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 Patient is Single and lives in [place]. Have you smoked in the past 12 months: No Alcohol use: No Caffeine use: Yes Caffeine amount and frequency: 2-3 CANS DAILY Family History Family history of sleep disordered breathing: No Allergies and Home Medications Known drug allergies: Yes ( LISTED ) Drug allergies reviewed: Yes Home medication list reviewed: Yes Allergy and home medication list: Allergies meperidine HCl * [From Demerol] Allergy (Verified 04/15/23 11:09) Nausea JUAN F Inhibitors Adverse Reaction (Verified 04/15/23 11:09) Respiratory Home Medications Medication Instructions Recorded Confirmed Last Taken Type Pravastatin Sodium 40 mg PO DAILY 09/22/13 04/17/23 08/17/17 20:00 History 40 MG Sertraline [Zoloft] 25 mg PO DAILY 07/06/17 04/17/23 08/18/17 05:00 History 25 MG Losartan Potassium 25 mg PO DAILY 07/07/17 04/17/23 08/18/17 05:00 History 25 MG Omeprazole [PriLOSEC] 20 mg PO DAILY 08/18/17 04/17/23 08/18/17 05:00 History 20 MG Fluticasone [Flonase] See Rx Instructions .ROUTE .COMPLEX 04/17/23 04/17/23 Unknown History Inulin/Cholecalciferol (D3) [Fiber See Rx Instructions .ROUTE .COMPLEX 04/17/23 04/17/23 Unknown History Gummies-Vitamin D3] Lactobacillus Combination No.4 See Rx Instructions .ROUTE .COMPLEX 04/17/23 04/17/23 Unknown History [Probiotic] Review of Systems Weight gain over past 5 years: 40 Cardiovascular: reports: high blood pressure, leg or foot swelling Respiratory: reports: shortness of breath, chronic cough Gastrointestinal: reports: heartburn, diarrhea Urinary: reports: frequency Psychiatric: reports: anxiety, depression, claustrophobia Ear/Nose/Throat: reports: nasal congestion, sinus problems, tonsillectomy. denies: injury to nose Endocrine: reports: sluggishness, excessive thirst, increased urination Musculoskeletal: reports: joint pain, neck pain Immunologic: reports: sneezing Physical Exam Vital signs obtained and entered by: LINETTE Aparicio MA Blood Pressure: 173/102 (RIGHT ARM) Cuff size: regular Heart Rate: 76 O2 Saturation: 95 Height: 5 ft 2 in Weight: 244 lb Body Mass Index: 44.6 BMI Classification: Morbidly Obese Neck circumference: 17.5 Mouth and throat: narrow oropharynx Soft palate: long Hard palate: Torus palatinus Uvula: normal Uvula visualization: 0% Mallampati Class IV Tongue: enlarged in size with teeth dorsey on lateral edges Tonsils: absent bilaterally Neck: normal w/o lymphadenopathy or thyromegaly Heart: regular rate and rhythm Lungs: clear bilaterally Impression and Plan 1. Suspected Obstructive Sleep Apnea-Hypopnea Syndrome, as suggested by a history of loud and irregular snoring, gasping or choking in sleep, frequent awakening during the night, unrefreshed sleep, cognitive impairment, and excessive daytime sleepiness. Narrow oropharynx and obesity are common predisposing factors for obstructive sleep apnea-hypopnea syndrome. I recommend proceeding to polysomnography to confirm the diagnosis and to assess severity. If the patient has significant sleep disordered breathing, a manual CPAP titration study will also be performed to find the optimal treatment pressure. I informed the patient of what the sleep studies involve and after some discussion, obtained agreement to proceed. The pathophysiology of obstructive sleep apnea-hypopnea syndrome was discussed with the patient and health risks of cardiovascular and cerebrovascular disease if not treated. 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 Patient agreed to plan. 2. Elevated blood pressure reading in patient with hypertension. Her blood pressure was 173/102 when taken in the office today. She did not complain of chest pain, shortness of breath, dizziness or headaches. She should followup with her primary provider as needed to check her blood pressure. * Schedule polysomnography +- manual CPAP titration study and return in 1-2 weeks after the study to discuss result and initiate therapy. * Avoid long distance driving or driving when feeling sleepy. * Avoid alcohol, sedative and muscle relaxant around bedtime. * Attempt to lose weight. * Review instructions provided by trained office staff on how to prepare for the sleep study. * Return for follow-up after sleep study completed. Counseling Topics: Weight loss health impact Plan: PSG/HST Visit Type: In Office Time Spent with Patient (minutes): 30 Provider Statement: I spent 100% of the Face to Face Visit with the patient with greater than 50% spent counseling the patient and coordination of care.
[2023-04-17 13:38] VITALS: BP 173/102; O2SAT 95
== END 2023-04-17 12:44 | disposition home or self-care (01) ==
LOC: SC 12:43
PROVIDERS: ATTEND Nurse Practitioner Family
DX: G47.10 Hypersomnia, unspecified (principal); R06.83 Snoring; G47.8 Other sleep disorders; R41.89 Other symptoms and signs involving cognitive functions and awareness; R03.0 Elevated blood-pressure reading, without diagnosis of hypertension; E66.01 Morbid (severe) obesity due to excess calories; Z68.41 Body mass index [BMI] 40.0-44.9, adult; R53.83 Other fatigue
CPT/HCPCS: 99203; 99212